=== PATIENT | male | born 1950 | race Caucasian/White ===

== ENCOUNTER 2024-01-10 20:44 | Observation (INO) | payer MEDICARE ==
[2024-01-10 22:11] LABS: #Basophils 0.06 10x3/uL (0.0-0.2); %Basophils 0.8 % (0.0-1.0); %Eosinophils 9.1 % (0.0-10.0); %Lymphocytes 13.3 % (21.0-51.0); %Monocytes 7.1 % (0.0-10.0); %Neutrophils 69.3 % (42.0-75.0); Hematocrit 33.7 % (42.0-52.0); Mean Corpuscular HGB CONC 29.7 g/dL (32.0-36.0); Mean Corpuscular Hemoglobin 22.5 pg (27.0-31.0); Mean Corpuscular Volume 75.7 fL (78.0-98.0); Mean Platelet Volume 9.4 fL (7.4-10.4); Platelet Count 161 10x3/uL (130-400); RBC Distribution Width 20.2 % (11.5-14.5); Red Blood Cell (RBC) Count 4.45 mill/uL (4.70-6.10)
[2024-01-10 22:23] LABS: INR-International Normal Ratio 1.3; PTT 42.6 sec (22.9-36.1); Prothrombin Time 15.9 sec (12.0-14.7)
[2024-01-10 22:31] LABS: ALT (SGPT) 16 U/L (8-55); AST (SGOT) 16 U/L (5-34); Albumin 3.1 g/dL (3.4-4.8); Alkaline Phosphatase 111 U/L (40-110); Anion Gap 14 mmol/L (10-20); BUN (Urea Nitrogen) 23 mg/dL (8.4-25.7); Bilirubin, Total 0.7 mg/dL (0.2-1.2); Calc. Creatinine Clearance 0 mL/min (70-130); Calcium 8.8 mg/dL (7.8-10.44); Carbon Dioxide 22 mmol/L (23-31); Chloride 100 mmol/L (98-107); Estimated GFR 57; Globulin 3.9 g/dL (2.4-3.5); Glucose 132 mg/dL (83-110); Magnesium 2.1 mg/dL (1.6-2.6); Potassium 4.3 mmol/L (3.5-5.1); Sodium 132 mmol/L (136-145)
[2024-01-10 22:36] LABS: Troponin I 0.046 ng/mL (< 0.028)
[2024-01-10 23:41] LABS: Bacteria/HPF None Seen HPF (None Seen); Bilirubin Negative (Negative); Blood, Urine Negative (Negative); CAUTI Indications for Culture Fever or rigors; Clarity Clear (Clear); Glucose, Urine (Dipstick) Greater than 1000 mg/dL (Negative); Ketone, Urine Negative (Negative); Leukocyte 25 Leu/uL (Negative); Nitrite Negative (Negative); Protein, Urine (Dipstick) Negative (Neg-Trace); RBC/HPF 0-3 HPF (0-3); Specific Gravity, Urine 1.006 (1.002-1.036); Squamous Epithelial None Seen HPF (0-3); Urobilinogen Normal mg/dL (Less than 2); WBC/HPF 0-3 HPF (0-3)
[2024-01-10] MEDS ORDERED: Furosemide 40 MG (4 mL) VIAL ONE (23:44)
[2024-01-10] MEDS ORDERED: Aspirin Chewable 81 MG TAB ONE (23:45)
[2024-01-10 23:52] LABS: Urine Culture Reflex No No
[2024-01-11] MEDS ORDERED: Acetaminophen 325 MG TAB PO PRN (00:45)
[2024-01-11] MEDS ORDERED: Glucagon 1 MG/ML KIT IM PRN (00:45)
[2024-01-11] MEDS ORDERED: Acetaminophen 650 MG Suppository PR PRN (00:45)
[2024-01-11] MEDS ORDERED: Ondansetron ODT 4 MG TAB PO PRN (00:45)
[2024-01-11] MEDS ORDERED: Dextrose 5% in Water 1,000 ML IV PRN (00:45)
[2024-01-11] MEDS ORDERED: Dextrose 50% Abboject 50 ML SYRINGE SLOW IVP PRN (00:45)
[2024-01-11] MEDS ORDERED: Ondansetron PF 4 MG/2 ML Vial IVP PRN (00:45)
[2024-01-11] MEDS ORDERED: Insulin Lispro 100 UNIT/ML 10 ML VIAL SC PRN (01:02)
[2024-01-11 01:43] LABS: Troponin I 0.047 ng/mL (< 0.028)
[2024-01-11 05:28] LABS: #Basophils 0.07 10x3/uL (0.0-0.2); %Basophils 1.1 % (0.0-1.0); %Eosinophils 12.6 % (0.0-10.0); %Lymphocytes 18.7 % (21.0-51.0); %Neutrophils 59.3 % (42.0-75.0); Hematocrit 35.1 % (42.0-52.0); Mean Corpuscular HGB CONC 28.5 g/dL (32.0-36.0); Mean Corpuscular Hemoglobin 21.6 pg (27.0-31.0); Mean Corpuscular Volume 75.8 fL (78.0-98.0); Mean Platelet Volume 9.4 fL (7.4-10.4); Platelet Count 162 10x3/uL (130-400); RBC Distribution Width 20.3 % (11.5-14.5); Red Blood Cell (RBC) Count 4.63 mill/uL (4.70-6.10)
[2024-01-11 05:57] LABS: Anion Gap 13 mmol/L (10-20); BUN (Urea Nitrogen) 23 mg/dL (8.4-25.7); Calc. Creatinine Clearance 0 mL/min (70-130); Calcium 8.8 mg/dL (7.8-10.44); Carbon Dioxide 25 mmol/L (23-31); Chloride 100 mmol/L (98-107); Estimated GFR 54; Glucose 178 mg/dL (83-110); Potassium 3.8 mmol/L (3.5-5.1); Sodium 134 mmol/L (136-145)
[2024-01-11 06:07] LABS: Troponin I 0.051 ng/mL (< 0.028)
[2024-01-11] MEDS: Clopidogrel Bisulfate 75 MG TAB PO SCH (08:32)
[2024-01-11] MEDS: Carvedilol 6.25 MG TAB PO SCH (08:32)
[2024-01-11] MEDS: Amiodarone 200 MG TAB PO SCH (08:32)
[2024-01-11] MEDS: Apixaban 5 MG TAB PO SCH (08:32)
[2024-01-11] MEDS: Losartan 25 MG TAB PO SCH (08:32)
[2024-01-11] MEDS: Insulin Lispro 100 UNIT/ML 10 ML VIAL SC PRN (17:19)
[2024-01-11] MEDS: Gabapentin 100 MG CAP PO SCH (23:27)
[2024-01-11] MEDS: Rosuvastatin 20 MG TAB PO SCH (23:27)
[2024-01-12 05:01] LABS: #Basophils 0.08 10x3/uL (0.0-0.2); %Eosinophils 9.5 % (0.0-10.0); %Lymphocytes 11.8 % (21.0-51.0); %Monocytes 7.5 % (0.0-10.0); %Neutrophils 69.8 % (42.0-75.0); Hematocrit 35.1 % (42.0-52.0); Hemoglobin 10.1 g/dL (14.0-18.0); Mean Corpuscular HGB CONC 28.8 g/dL (32.0-36.0); Mean Corpuscular Hemoglobin 22.2 pg (27.0-31.0); Mean Corpuscular Volume 77.3 fL (78.0-98.0); Mean Platelet Volume 9.3 fL (7.4-10.4); Platelet Count 173 10x3/uL (130-400); RBC Distribution Width 20.7 % (11.5-14.5); Red Blood Cell (RBC) Count 4.54 mill/uL (4.70-6.10)
[2024-01-12 05:11] LABS: Anion Gap 12 mmol/L (10-20); BUN (Urea Nitrogen) 23 mg/dL (8.4-25.7); Calc. Creatinine Clearance 88 mL/min (70-130); Calcium 8.9 mg/dL (7.8-10.44); Carbon Dioxide 25 mmol/L (23-31); Chloride 102 mmol/L (98-107); Estimated GFR 59; Glucose 185 mg/dL (83-110); Potassium 3.9 mmol/L (3.5-5.1); Sodium 135 mmol/L (136-145)
[2024-01-12] MEDS: Finasteride 5 MG TAB PO SCH (08:40)
[2024-01-12] MEDS: Ezetimibe 10 MG TAB PO SCH (08:40)
[2024-01-12] MEDS: DULoxetine 60 MG CAP PO SCH (08:41)
[2024-01-12 13:22] VITALS: BP 148/72; TEMP 97.2
== END 2024-01-12 13:00 | disposition home or self-care (01) ==
LOC: ERS 20:44 → 2NO 22:48
PROVIDERS: ADMIT Student in an Organized Health Care Education/Training Program; ATTEND Internal Medicine
DX: R55 Syncope and collapse (principal); I25.10 Atherosclerotic heart disease of native coronary artery without angina pectoris; E11.9 Type 2 diabetes mellitus without complications; I49.5 Sick sinus syndrome; I11.0 Hypertensive heart disease with heart failure; I50.20 Unspecified systolic (congestive) heart failure; I21.4 Non-ST elevation (NSTEMI) myocardial infarction; E78.5 Hyperlipidemia, unspecified; R29.6 Repeated falls; I25.5 Ischemic cardiomyopathy; I48.91 Unspecified atrial fibrillation; E66.9 Obesity, unspecified; Z90.89 Acquired absence of other organs; Z98.890 Other specified postprocedural states; Z95.810 Presence of automatic (implantable) cardiac defibrillator; Z79.899 Other long term (current) drug therapy; Z91.018 Allergy to other foods; Z91.010 Allergy to peanuts; Z88.8 Allergy status to other drugs, medicaments and biological substances; Z79.01 Long term (current) use of anticoagulants; Z79.02 Long term (current) use of antithrombotics/antiplatelets; Z68.39 Body mass index [BMI] 39.0-39.9, adult
CPT/HCPCS: 71045; 80048 ×2; 81001; 82962 ×2; 83735; 83880; 84484 ×3; 85025 ×2; 85610; 85730; 93005; 96374; 97110; 97139; 97530 ×2; 99285; J1815; J1940; 36415; 36416; 80053; 84443; G0378

== ENCOUNTER 2024-01-16 19:51 | Observation (INO) | payer MEDICARE ==
[2024-01-16] MEDS ORDERED: Furosemide 40 MG (4 mL) VIAL ONE (20:57)
[2024-01-16 21:32] LABS: #Basophils 0.03 10x3/uL (0.0-0.2); %Basophils 0.8 % (0.0-1.0); %Eosinophils 3.6 % (0.0-10.0); %Lymphocytes 10.3 % (21.0-51.0); %Monocytes 10.8 % (0.0-10.0); %Neutrophils 74.2 % (42.0-75.0); Hematocrit 32.3 % (42.0-52.0); Hemoglobin 9.3 g/dL (14.0-18.0); Mean Corpuscular HGB CONC 28.8 g/dL (32.0-36.0); Mean Corpuscular Hemoglobin 22.2 pg (27.0-31.0); Mean Corpuscular Volume 77.1 fL (78.0-98.0); Mean Platelet Volume 9.7 fL (7.4-10.4); Platelet Count 158 10x3/uL (130-400); RBC Distribution Width 21.3 % (11.5-14.5); Red Blood Cell (RBC) Count 4.19 mill/uL (4.70-6.10)
[2024-01-16 21:40] LABS: INR-International Normal Ratio 1.3; Prothrombin Time 16.3 sec (12.0-14.7)
[2024-01-16 21:41] LABS: PTT 47.6 sec (22.9-36.1)
[2024-01-16 21:50] LABS: ALT (SGPT) 30 U/L (8-55); AST (SGOT) 50 U/L (5-34); Albumin 2.9 g/dL (3.4-4.8); Alkaline Phosphatase 111 U/L (40-110); Anion Gap 14 mmol/L (10-20); BUN (Urea Nitrogen) 22 mg/dL (8.4-25.7); Bilirubin, Total 0.7 mg/dL (0.2-1.2); Calc. Creatinine Clearance 0 mL/min (70-130); Calcium 8.1 mg/dL (7.8-10.44); Carbon Dioxide 18 mmol/L (23-31); Chloride 102 mmol/L (98-107); Estimated GFR 64; Globulin 3.8 g/dL (2.4-3.5); Glucose 121 mg/dL (83-110); Potassium 4.1 mmol/L (3.5-5.1); Protein, Total 6.7 g/dL (5.8-8.1); Sodium 130 mmol/L (136-145)
[2024-01-16 21:55] LABS: Anisocytosis SLIGHT = 6-15 cells HPF (0-5); Elliptocytes SLIGHT = 2-5 cells HPF (0-1); Hypochromia SLIGHT = 6-15 cells HPF (0-5); Microcytosis SLIGHT = 6-15 cells HPF (0-5); Platelet Adequacy Comment Platelets Normal; Polychromasia SLIGHT = 2-3 cells HPF (0-2)
[2024-01-17 00:19] LABS: Troponin I 0.055 ng/mL (< 0.028)
[2024-01-17] MEDS ORDERED: Acetaminophen 325 MG TAB PO PRN (02:06)
[2024-01-17] MEDS ORDERED: Ondansetron PF 4 MG/2 ML Vial IVP PRN (02:06)
[2024-01-17] MEDS ORDERED: Ondansetron ODT 4 MG TAB PO PRN (02:06)
[2024-01-17] MEDS ORDERED: Acetaminophen 650 MG Suppository PR PRN (02:06)
[2024-01-17 04:08] VITALS: BMI 42.3
[2024-01-17 04:26] LABS: Troponin I 0.035 ng/mL (< 0.028)
[2024-01-17 07:14] LABS: #Basophils 0.04 10x3/uL (0.0-0.2); %Eosinophils 5.3 % (0.0-10.0); %Lymphocytes 13.3 % (21.0-51.0); %Monocytes 12.3 % (0.0-10.0); %Neutrophils 67.6 % (42.0-75.0); Hematocrit 35.5 % (42.0-52.0); Hemoglobin 10.2 g/dL (14.0-18.0); Mean Corpuscular HGB CONC 28.7 g/dL (32.0-36.0); Mean Corpuscular Hemoglobin 21.8 pg (27.0-31.0); Mean Platelet Volume 9.6 fL (7.4-10.4); Platelet Count 186 10x3/uL (130-400); RBC Distribution Width 21.5 % (11.5-14.5); Red Blood Cell (RBC) Count 4.67 mill/uL (4.70-6.10)
[2024-01-17 07:27] LABS: Anion Gap 16 mmol/L (10-20); BUN (Urea Nitrogen) 25 mg/dL (8.4-25.7); Calc. Creatinine Clearance 96 mL/min (70-130); Calcium 8.5 mg/dL (7.8-10.44); Carbon Dioxide 20 mmol/L (23-31); Chloride 100 mmol/L (98-107); Estimated GFR 59; Glucose 108 mg/dL (83-110); Potassium 4.3 mmol/L (3.5-5.1); Sodium 132 mmol/L (136-145)
[2024-01-17 07:34] LABS: Troponin I 0.046 ng/mL (< 0.028)
[2024-01-17 07:52] VITALS: TEMP 97.1
[2024-01-17 15:43] VITALS: BP 145/70
== END 2024-01-17 17:33 | disposition home or self-care (01) ==
LOC: ERS 19:51 → ERHOLD 23:50 → 2NO 01-17 07:45
PROVIDERS: ADMIT Student in an Organized Health Care Education/Training Program; ATTEND Family Medicine
DX: R55 Syncope and collapse (principal); I48.91 Unspecified atrial fibrillation; I49.5 Sick sinus syndrome; I11.0 Hypertensive heart disease with heart failure; I50.20 Unspecified systolic (congestive) heart failure; E66.9 Obesity, unspecified; E11.9 Type 2 diabetes mellitus without complications; I25.10 Atherosclerotic heart disease of native coronary artery without angina pectoris; E78.5 Hyperlipidemia, unspecified; Z88.8 Allergy status to other drugs, medicaments and biological substances; Z91.010 Allergy to peanuts; Z79.02 Long term (current) use of antithrombotics/antiplatelets; Z90.89 Acquired absence of other organs; Z98.890 Other specified postprocedural states; Z79.01 Long term (current) use of anticoagulants; Z79.84 Long term (current) use of oral hypoglycemic drugs; Z68.41 Body mass index [BMI] 40.0-44.9, adult; Z79.899 Other long term (current) drug therapy
CPT/HCPCS: 70450; 71045; 72125; 80048; 80053; 83036; 83605; 83880; 84443; 84484 ×3; 85025 ×2; 85610; 85730; 87040; 87324; 87449; 93005; 96374; 99285; G0378 ×2; J1940; 36415